=== PATIENT | female | born 1950 | race Caucasian/White ===

== ENCOUNTER 2019-08-16 07:43 | Day surgery (SDC) | payer MEDICARE, OTHER ==
[2019-08-16] MEDS ORDERED: Propofol 200 MG/20 ML SDV IV ONE (07:44)
[2019-08-16] MEDS ORDERED: Sodium Chloride 0.9% 10 ML Syringe FLUSH PRN (07:45)
[2019-08-16] MEDS ORDERED: Lactated Ringers 1,000 ML IV SCH (07:45)
--- NOTE | 2019-08-16 09:56 | PCM.OPNOTE ---
- General Post-Op/Procedure Note Date of Surgery/Procedure: 08/16/19 Operative Procedure(s): c scope Findings: sigmoid diverticulosis Pre Op Diagnosis: screening Post-Op Diagnosis: sigmoid diverticulosis Anesthesia Technique: MAC Primary Surgeon: Reynaldo Parham Anesthesia Provider: Denia Hernández Pathology: none Complications: None Condition: Good Free Text/Narrative:: see dictation
--- NOTE | 2019-08-16 15:30 | OR ---
DATE OF OPERATION: 08/16/2019 SURGEON: Reynaldo Parham MD PROCEDURE PERFORMED: Colonoscopy. PREOPERATIVE DIAGNOSIS: Colon cancer screening. POSTOPERATIVE DIAGNOSIS: Sigmoid diverticulosis. INDICATIONS FOR PROCEDURE: This is a 69-year-old white female who presents for routine screening colonoscopy, was offered and accepted same. DESCRIPTION OF OPERATION: After an excellent IV sedation was administered, digital rectal exam was performed. No marked abnormality was noted. Flexible colonoscope was inserted and advanced to the cecum. Prep was excellent. Following findings were noted. Ascending colon, unremarkable. Transverse colon, unremarkable. Descending colon, unremarkable. Sigmoid, mild diverticulosis. Rectum and anus, unremarkable. RECOMMENDATIONS: Repeat scope in 10 years on a p.r.n. basis. /[id number] /CHERL
== END 2019-08-16 10:42 | disposition home or self-care (01) ==
LOC: FB.SDS 07:43
PROVIDERS: ATTEND Surgery
DX: Z12.11 Encounter for screening for malignant neoplasm of colon (principal); K57.30 Diverticulosis of large intestine without perforation or abscess without bleeding; E78.49 Other hyperlipidemia; M19.90 Unspecified osteoarthritis, unspecified site; Z86.010 Personal history of colon polyps; Z83.71 Family history of colonic polyps; Z79.899 Other long term (current) drug therapy
CPT/HCPCS: G0121; J2704; J7120; 00811-QZ